=== PATIENT | female | born 1940 | race Two or more races ===

== ENCOUNTER → 2017-11-23 | Outpatient (CLI) | payer MEDICARE, OTHER ==
[~2017-11-23] MED LIST: AMIO400T2 PO; ASPI-1073 PO; ATOR20TA65 PO; CARV25TA47 PO; COR25 PO; DIGO-37 PO; FURO-151 PO; FURO40TA5 PO; ISOS40TA12 PO; ISOS60TA PO; LOSA100T3 PO; SPIR25TA PO; SPIR25TA4 PO; WARF2TAB57 PO
== END | disposition home or self-care (01) ==
LOC: RAD 10:56
PROVIDERS: ATTEND Specialist
DX: J44.9 Chronic obstructive pulmonary disease, unspecified (principal); M85.88 Other specified disorders of bone density and structure, other site; Z95.810 Presence of automatic (implantable) cardiac defibrillator
CPT/HCPCS: 71045